=== PATIENT | female | born 1970 | race Two or more races ===

== ENCOUNTER → 2016-08-19 | Outpatient (CLI) | payer OTHER | LOC: OD 11:26 | PROVIDERS: ATTEND Internal Medicine Cardiovascular Disease | DX: N91.2 Amenorrhea, unspecified (principal) | CPT/HCPCS: 81025 ==

== ENCOUNTER 2016-12-31 13:20 | Emergency (ER) | payer OTHER ==
--- NOTE | 2016-12-31 14:27 | ER Document Report ---
ED Medical Screen (RME) - General Chief Complaint: Abdominal Pain Stated Complaint: ABDOMINAL PAIN Time Seen by Provider: 12/31/16 14:19 Notes: Says that she has been experiencing pain in her right lower quadrant since Wednesday evening. It has worsened and not better with Motrin. Has been nauseated but not vomiting. No change in bowels. Last bowel movement was yesterday. No fevers. Denies any UTI symptoms. Has never had any abdominal surgeries. History of IDDM. TRAVEL OUTSIDE OF THE [place] IN LAST 30 DAYS: No - Related Data Allergies/Adverse Reactions: morphine Adverse Reaction (Mild, Verified 12/31/16 13:28) Past Medical History - Past Medical History Cardiac Medical History: Denies: Hx Coronary Artery Disease, Hx Heart Attack, Hx Hypertension Pulmonary Medical History: Reports: Hx Asthma - MILD Denies: Hx Bronchitis, Hx COPD, Hx Pneumonia Neurological Medical History: Denies: Hx Cerebrovascular Accident, Hx Seizures Renal/ Medical History: Denies: Hx Peritoneal Dialysis Musculoskeltal Medical History: Denies Hx Arthritis Past Surgical History: Denies: Hx Hysterectomy - Immunizations Hx Diphtheria, Pertussis, Tetanus Vaccination: Yes Physical Exam - Vital signs Vitals: Temp Pulse Resp BP Pulse Ox 98.2 F 67 14 129/75 H 98 12/31/16 13:28 12/31/16 13:28 12/31/16 13:28 12/31/16 13:28 12/31/16 13:28 Course - Vital Signs Vital signs: Temp Pulse Resp BP Pulse Ox 98.2 F 67 14 129/75 H 98 12/31/16 13:28 12/31/16 13:28 12/31/16 13:28 12/31/16 13:28 12/31/16 13:28
[2016-12-31 14:56] LABS: ABSOLUTE BASOPHILS # (AUTO) 0.1 10^3/uL (0.0-0.2); ABSOLUTE EOSINOPHILS # (AUTO) 0.1 10^3/uL (0.0-0.6); ABSOLUTE LYMPHOCYTES (AUTO) 2.5 10^3/uL (0.5-4.7); ABSOLUTE MONOCYTES (AUTO) 0.7 10^3/uL (0.1-1.4); ABSOLUTE NEUT (AUTO) 3.1 10^3/uL (1.7-8.2); EOSINOPHILS % (AUTO) 1.6 % (0-6); HEMATOCRIT 39.1 % (36.0-47.0); HEMOGLOBIN 12.8 g/dL (12.0-15.5); HGB HCT DIFFERENCE -0.7; LYMPHOCYTES % (AUTO) 38.3 % (13-45); MEAN CORPUSCULAR HEMOGLOBIN 28.4 pg (27.0-33.4); MEAN CORPUSCULAR HGB CONC 32.6 g/dL (32.0-36.0); MEAN CORPUSCULAR VOLUME 87 fl (80-97); MONOCYTES % (AUTO) 10.8 % (3-13); RED BLOOD COUNT 4.49 10^6/uL (3.72-5.28); RED CELL DISTRIBUTION WIDTH 17.8 % (11.5-14.0); SEGMENTED NEUTROPHILS % (AUTO) 48.3 % (42-78); WHITE BLOOD COUNT 6.5 10^3/uL (4.0-10.5)
[2016-12-31 15:01] LABS: APPEARANCE,URINE CLEAR; BILIRUBIN,URINE NEGATIVE (NEGATIVE); GLUCOSE, URINE NEGATIVE (NEGATIVE); KETONES,URINE NEGATIVE (NEGATIVE); LEUKOCYTE ESTERASE,URINE NEGATIVE (NEGATIVE); NITRITE,URINE NEGATIVE (NEGATIVE); PROTEIN,URINE NEGATIVE (NEGATIVE); UROBILINOGEN,URINE NEGATIVE mg/dL (<2.0)
[2016-12-31 15:07] LABS: URINE SPECIFIC GRAVITY 1.006
[2016-12-31 15:09] LABS: ALANINE AMINOTRANSFERASE 45 U/L (9-52); ALBUMIN 4.6 g/dL (3.5-5.0); ALKALINE PHOSPHATASE 76 U/L (38-126); ANION GAP 13 (5-19); ASPARTATE AMINO TRANSFERASE 33 U/L (14-36); BILIRUBIN,DIRECT 0.3 mg/dL (0.0-0.4); BILIRUBIN,TOTAL 0.4 mg/dL (0.2-1.3); BLOOD UREA NITROGEN 14 mg/dL (7-20); CALCIUM 9.8 mg/dL (8.4-10.2); CARBON DIOXIDE 27 mmol/L (22-30); CHLORIDE 99 mmol/L (98-107); CREATININE RESULT 0.72 mg/dL (0.52-1.25); GLUCOSE 134 mg/dL (75-110); LIPASE 48.9 U/L (23-300); POTASSIUM 4.1 mmol/L (3.6-5.0); SODIUM 139.2 mmol/L (137-145)
--- NOTE | 2016-12-31 16:23 | ER Document Report ---
ED GI/ - General Mode of Arrival: Ambulatory Information source: Patient TRAVEL OUTSIDE OF THE [place] IN LAST 30 DAYS: No - HPI Patient complains to provider of: Abdominal pain Associated symptoms: Other - See above <ZACHARY GARCIA - Last Filed: 12/31/16 16:18> <JENIFER CASTRO - Last Filed: 12/31/16 19:57> - General Chief Complaint: Abdominal Pain Stated Complaint: ABDOMINAL PAIN Time Seen by Provider: 12/31/16 14:19 Notes: Patient is a 46 year old female, with a past medical history including diabetes and fibroids, who presents to the emergency department complaining of abdominal pain onset 4 days ago. Patient reports that the pain is located in her right lower abdomen and has been worsening. Patient states that she took GasX yesterday with no relief and a Motrin this morning with some relief. Patient went to urgent care and was told she did not have a UTI and if she wanted more tests to come to the ED. Patient also complains of some nausea. Patient denies fever, vomiting, and diarrhea. Patient states she had a shot of Lupron Depot in July and again on December 02, patient states that she had no period in October and only some spotting in November. Patient was also supposed to have her fibroids removed a couple of weeks ago but did not go. (ZACHARY GARCIA) - Related Data Allergies/Adverse Reactions: morphine Adverse Reaction (Mild, Verified 12/31/16 13:28) Past Medical History - General Information source: Patient - Social History Smoking Status: Never Smoker Chew tobacco use (# tins/day): No Frequency of alcohol use: None Drug Abuse: None Family History: Reviewed & Not Pertinent Patient has suicidal ideation: No Patient has homicidal ideation: No Pulmonary Medical History: Reports: Hx Asthma - MILD Endocrine Medical History: Reports: Hx Diabetes Mellitus Type 2 - Immunizations Hx Diphtheria, Pertussis, Tetanus Vaccination: Yes <ZACHARY GARCIA - Last Filed: 12/31/16 16:18> Review of Systems - Review of Systems Constitutional: denies: Fever EENT: No symptoms reported Cardiovascular: No symptoms reported Respiratory: No symptoms reported Gastrointestinal: See HPI, Abdominal pain, Nausea. denies: Diarrhea, Vomiting Genitourinary: No symptoms reported Female Genitourinary: No symptoms reported Musculoskeletal: No symptoms reported Skin: No symptoms reported Hematologic/Lymphatic: No symptoms reported Neurological/Psychological: No symptoms reported -: Yes All other systems reviewed and negative <GARCIAZACHARY - Last Filed: 12/31/16 16:18> Physical Exam <GARCIAZACHARY - Last Filed: 12/31/16 16:18> <JENIFER CASTRO - Last Filed: 12/31/16 19:57> - Vital signs Vitals: Temp Pulse Resp BP Pulse Ox 98.2 F 67 14 129/75 H 98 12/31/16 13:28 12/31/16 13:28 12/31/16 13:28 12/31/16 13:28 12/31/16 13:28 - Notes Notes: GENERAL: Alert, interacts well. No acute distress. HEAD: Normocephalic, atraumatic. EYES: Pupils equal, round, and reactive to light. Extraocular movements intact. ENT: Oral mucosa moist, tongue midline. NECK: Full range of motion. Supple. Trachea midline. LUNGS: Clear to auscultation bilaterally, no wheezes, rales, or rhonchi. No respiratory distress. HEART: Regular rate and rhythm. No murmurs, gallops, or rubs. ABDOMEN: Suprapubic and right lower quadrant tener to palpation. Abdomen soft and slightly large. Bowel sounds present in all 4 quadrants. EXTREMITIES: Moves all 4 extremities spontaneously. No edema. No cyanosis. NEUROLOGICAL: Alert and oriented x3. Normal speech. PSYCH: Normal affect, normal mood. SKIN: Warm, dry, normal turgor. No rashes or lesions noted. (RADHAZACHARY) Course - Laboratory Result Diagrams: 12/31/16 14:40 12/31/16 14:40 <ZACHARY GARCIA - Last Filed: 12/31/16 16:18> - Laboratory Result Diagrams: 12/31/16 14:40 12/31/16 14:40 <JENIFER CASTRO - Last Filed: 12/31/16 19:57> - Re-evaluation Re-evalutation: 12/31/16 18:44 CBC unremarkable, CMP shows hyperglycemia with glucose 134, LFTs normal, hCG negative, lipase normal, urinalysis negative, CT scan of the abdomen and pelvis shows known uterine fibroids which are worsened compared to prior, appendix is normal, there is moderate fecal retention noted. Specific explanation for the patient's pain is found at this time, some of the fecal retention may be contributing to it. Patient will be trialed on a dose of magnesium citrate at home and discharged to home. She will return for fevers or new or concerning symptoms. She will follow-up as an outpatient with [facility] TECH[facility]IC[facility] to reschedule her surgery for her fibroids. (JENIFER CASTRO) - Vital Signs Vital signs: Temp Pulse Resp BP Pulse Ox 97.8 F 76 16 120/74 100 12/31/16 19:05 12/31/16 19:05 12/31/16 19:05 12/31/16 19:05 12/31/16 19:05 - Laboratory Laboratory results interpreted by me: 12/31/16 12/31/16 14:40 14:40 RDW 17.8 H Glucose 134 H Discharge <ZACHARY GARCIA - Last Filed: 12/31/16 16:18> <JENIFER CASTRO - Last Filed: 12/31/16 19:57> - Discharge Clinical Impression: Right lower quadrant abdominal pain of unknown etiology Fecal retention Qualifiers: Constipation type: unspecified constipation type Qualified Code(s): K59.00 - Constipation, unspecified Fibroid uterus Qualifiers: Uterine leiomyoma location: intramural, submucous, and subserous Qualified Code (s): D25.1 - Intramural leiomyoma of uterus Condition: Stable Disposition: HOME, SELF-CARE Additional Instructions: We do not know exactly what is causing your abdominal pain, some of it is likely coming from the retained stool. Please drink a bottle of magnesium citrate to help clean out your intestines. Return for fevers, vomiting, worsening pain. Please follow-up with your [facility] TECHNIC[facility] as an outpatient to continue to address her uterine fibroids. Prescriptions: Magnesium Citrate 295 ml PO NOW #1 solution Referrals: LEAH ESCUDERO DO [Primary Care Provider] - Follow up in 3-5 days Scribe Attestation: 12/31/16 19:56 I personally performed the services described in the documentation, reviewed and edited the documentation which was dictated to the scribe in my presence, and it accurately records my words and actions. (JENIFER CASTRO) Scribe Documentation - Scribe Written by Renetta:: renetta Pate, 12/31/16, 1627 acting as scribe for :: Olman <ZACHARY GARCIA - Last Filed: 12/31/16 16:18>
--- NOTE | 2016-12-31 17:54 | RADIOLOGY REPORT (SQ) ---
EXAM DESCRIPTION: CT ABD/PELVIS WITH IV ORAL COMPLETED DATE/TIME: 12/31/2016 5:37 pm REASON FOR STUDY: RLQ pain 5 days COMPARISON: Correlation made to pelvic ultrasound from 07/13/2011. TECHNIQUE: CT scan of the abdomen and pelvis performed with intravenous and oral contrast using brando vic scanning technique with dynamic intravenous contrast injection. Images reviewed with lung, soft t issue, and bone windows. Reconstructed coronal and sagittal MPR images reviewed. Delayed images for e valuation of the urinary system also acquired. All images stored on PACS. All CT scanners at this facility use dose modulation, iterative reconstruction, and/or weight based d osing when appropriate to reduce radiation dose to as low as reasonably achievable (ALARA). [facility]: Dose Right [facility]: CareDose [facility]: Dose Right [facility]: Teradose 4D [facility]: [place] CONTRAST TYPE AND DOSE: contrast/concentration: Isovue 370.00 mg/ml; Total Contrast Delivered: 95.0 ml; Total Saline Delivered: 50.0 ml RENAL FUNCTION: GFR > 60. RADIATION DOSE: Up-to-date CT equipment and radiation dose reduction techniques were employed. CTDIv ol: 10.6 - 13.9 mGy. DLP: 2054 mGy-cm. . LIMITATIONS: None. FINDINGS: LOWER CHEST: No significant findings. No nodules or infiltrates. LIVER: Normal size. No masses. No dilated ducts. SPLEEN: Normal size. No focal lesions. PANCREAS: No masses. No significant calcifications. No adjacent inflammation or peripancreatic fluid collections. Pancreatic duct not dilated. GALLBLADDER: No identified stones by CT criteria. No inflammatory changes to suggest cholecystitis. ADRENAL GLANDS: No significant masses or asymmetry. RIGHT KIDNEY AND URETER: No solid masses. No significant calcifications. No hydronephrosis or hyd roureter. LEFT KIDNEY AND URETER: No solid masses. No significant calcifications. No hydronephrosis or hydr oureter. AORTA AND VESSELS: No aneurysm. No dissection. Renal arteries, SMA, celiac without stenosis. RETROPERITONEUM: No retroperitoneal adenopathy, hemorrhage or masses. BOWEL AND PERITONEAL CAVITY: Moderate fecal retention. No obstruction. No visualized masses. No free fluid. No inflammatory changes or thickening of bowel wall. APPENDIX: Normal. PELVIS: Again noted is fibroid uterus which has progressed compared to prior ultrasound with innumera ble fibroids some of which are calcified. The uterus measures approximately 16.8 x 13.8 x 10.9 cm. Ovaries are grossly normal by CT imaging. No additional significant masses. Normal bladder. No free fluid. ABDOMINAL WALL: No masses. No hernias. BONES: Degenerative disc disease L5-S1. No fracture or suspicious osseous lesion. OTHER: No other significant finding. IMPRESSION: NO ACUTE INFLAMMATORY CHANGES SEEN WITHIN THE ABDOMEN OR PELVIS. APPENDIX IS NORMAL. MODERATE FECAL RETENTION. FIBROID UTERUS ABOVE. TECHNICAL DOCUMENTATION: JOB ID: [id number] Quality ID # [id number]: Final reports with documentation of one or more dose reduction techniques (e.g., Au tomated exposure control, adjustment of the mA and/or kV according to patient size, use of iterative reconstruction technique) 2010 [employer]- All Rights Reserved
[2016-12-31 19:11] VITALS: BP 120/74
== END 2016-12-31 19:11 | disposition home or self-care (01) ==
LOC: ER 13:20
DX: R10.31 Right lower quadrant pain (principal); K59.00 Constipation, unspecified; D25.1 Intramural leiomyoma of uterus; E11.9 Type 2 diabetes mellitus without complications; R11.0 Nausea
CPT/HCPCS: 36415; 74177; 80053; 81001; 83690; 84703; 85025; 99284

== ENCOUNTER → 2017-05-06 | Outpatient (CLI) | payer OTHER ==
--- NOTE | 2017-05-06 10:57 | RADIOLOGY REPORT (SQ) ---
EXAM DESCRIPTION: C SP 4 OR 5 VIEWS COMPLETED DATE/TIME: 05/06/2017 10:48 am REASON FOR STUDY: CERVICALGIA M54.2 CERVICALGIA COMPARISON: None. NUMBER OF VIEWS: Five views. TECHNIQUE: AP, lateral, obliques and odontoid radiographic images acquired of the cervical spine. LIMITATIONS: None. FINDINGS: MINERALIZATION: Normal. ALIGNMENT: Anatomic. VERTEBRAE: Vertebral bodies of normal height. DISCS: No significant osteophytes or sclerosis. Disc height maintained. FORAMINA: No osteophytes or foraminal narrowing. LATERAL AND POSTERIOR ELEMENTS: Facets, lateral masses and spinous processes without significant find ings. HARDWARE: None in the spine. SOFT TISSUES: No masses or calcifications. Lung apices clear. OTHER: No other significant finding. IMPRESSION: NO SIGNIFICANT RADIOGRAPHIC FINDING IN THE CERVICAL SPINE. TECHNICAL DOCUMENTATION: JOB ID: [id number] [employer]- All Rights Reserved
== END ==
LOC: OD 10:08
PROVIDERS: ATTEND Family Medicine
DX: M54.2 Cervicalgia (principal)
CPT/HCPCS: 72050

== ENCOUNTER → 2017-05-25 | Outpatient (CLI) | payer OTHER ==
--- NOTE | 2017-05-25 08:38 | WOMENS IMAGING REPORT ---
EXAM DESCRIPTION: BILAT SCREENING MAMMO W/CAD COMPLETED DATE/TIME: 05/25/2017 7:59 am REASON FOR STUDY: SCREENING MAMMO Z12.31 ENCNTR SCREEN MAMMOGRAM FOR MALIGNANT NEOPLASM OF WILLIAM COMPARISON: 2008 TECHNIQUE: Standard craniocaudal and mediolateral oblique views of each breast recorded using digita l acquisition. LIMITATIONS: None. FINDINGS: RIGHT BREAST MASSES: No suspicious masses. CALCIFICATIONS: No new or suspicious calcifications. ARCHITECTURAL DISTORTION: None. DEVELOPING DENSITY: None. ASYMMETRY: None noted. OTHER: No other significant findings. LEFT BREAST MASSES: Subcentimeter nodule versus superimposed shadows far left breast upper outer quadrant. This requires further evaluation with left breast 90 mediolateral view/tomosynthesis, exaggerated cranioc audad view/tomosynthesis, and cone compression in the CC and MLO orientations. If this finding persi sts, then ultrasound would be required for followup CALCIFICATIONS: No new or suspicious calcifications. ARCHITECTURAL DISTORTION: None. DEVELOPING DENSITY: None. ASYMMETRY: None noted. OTHER: No other significant findings. Read with the assistance of CAD. .[facility] [place] - R2 C[employer]ova Version 1.3 .[facility] - R2 Cenova Version 1.3 .[facility] - R2 Cenova Version 2.4 .[facility] - R2 Cenova Version 2.4 .[facility] - R2 [employer] Version 9.2 IMPRESSION: Subcentimeter nodule versus superimposed shadows far left upper outer quadrant for which additional mammograms and ultrasound are recommended. No mammographic evidence for malignancy right breast. BREAST DENSITY: b. There are scattered areas of fibroglandular density. BIRAD: 0 Incomplete: Needs Additional Imaging Evaluation and/or prior Mammograms for Comparison. RECOMMENDATION: RECOMMENDED FOLLOW-UP: Additional left breast mammograms and ultrasound The patient will be contacted for additional imaging. COMMENT: The patient has been notified of the results by letter per SA requirements. Additional no tification policies are in place for contacting patient with suspicious or incomplete findings. Quality ID #225: The [employer] recommends an annual screening mammogram for women aged 40 years or over. This facility utilizes a reminder system to ensure that all patients receive reminder letters, and/or direct phone calls for appointments. This includes reminders for routine scr eening mammograms, diagnostic mammograms, or other Breast Imaging Interventions when appropriate. Th is patient will be placed in the appropriate reminder system. The [employer] (ACR) has developed recommendations for screening MRI of the breast s in certain patient populations, to be used in conjunction with mammography. Breast MRI surveillanc e may be appropriate for women with more than 20% lifetime risk of developing breast cancer as deter mined by genetic testing, significant family history of the disease, or history of mantle radiation f or Hodgkins Disease. ACR Practice Guidelines 2008. TECHNICAL DOCUMENTATION: FINDING NUMBER: (1) ASSESSMENT: (1) JOB ID: [id number] [employer]- All Rights Reserved
== END ==
LOC: WI 07:14
PROVIDERS: ATTEND Family Medicine
DX: Z12.31 Encounter for screening mammogram for malignant neoplasm of breast (principal)
CPT/HCPCS: 77067; G0202

== ENCOUNTER → 2017-06-22 | Outpatient (CLI) | payer OTHER ==
--- NOTE | 2017-06-22 11:51 | WOMENS IMAGING REPORT ---
EXAM DESCRIPTION: LEFT DIAGNOSTIC MAMMO W/CAD; U/S BREAST UNILAT LIMITED COMPLETED DATE/TIME: 06/22/2017 10:26 am; 06/22/2017 11:27 am REASON FOR STUDY: UNSPECIFIED LUMP;N63.21; LEFT BREAST; N63.21 N63.21 UNSPECIFIED LUMP IN THE LEFT BREAST, UPPER OUTER QUAD COMPARISON: 05/25/2017 and 07/22/2011. TECHNIQUE: Additional true lateral and compression MLO and CC images acquired. LIMITATIONS: None. FINDINGS: BREAST: left MASSES: Heterogenous parenchyma in the upper-outer breast with no discrete mass on additional images. CALCIFICATIONS: No new or suspicious calcifications. ARCHITECTURAL DISTORTION: None. DEVELOPING DENSITY: None. ASYMMETRY: None noted. OTHER: No other significant findings. BREAST ULTRASOUND: TECHNIQUE: Static and dynamic grayscale images acquired of the left breast in the specific areas of c linical/mammographic concern. Selected color Doppler images recorded. ELASTOGRAPHY PERFORMED: No. LIMITATIONS: None. FINDINGS: MASS: No mass identified. Normal glandular tissue. ELASTOGRAPHY CHARACTERISTICS: Not applicable. OTHER: No other significant finding. IMPRESSION: No abnormal mammographic or sonographic findings in the upper-outer breast. BREAST DENSITY: b. There are scattered areas of fibroglandular density. BIRAD: 2 Benign findings. RECOMMENDATION: RECOMMENDED FOLLOW UP: Birads 1 or 2: The patient should resume routine screening . SPECIFIC INTERVENTION/IMAGING/CONSULTATION RECOMMENDED:No additional intervention/ imaging/consultati on needed at this time. COMMUNICATION:The negative/benign results were communicated to the patient. COMMENT: The patient has been notified of the results by letter per SA requirements. Additional no tification policies are in place for contacting patient with suspicious or incomplete findings. Quality ID #225: The [employer] recommends an annual screening mammogram for women aged 40 years or over. This facility utilizes a reminder system to ensure that all patients receive reminder letters, and/or direct phone calls for appointments. This includes reminders for routine scr eening mammograms, diagnostic mammograms, or other Breast Imaging Interventions when appropriate. Th is patient will be placed in the appropriate reminder system. The [employer] (ACR) has developed recommendations for screening MRI of the breast s in certain patient populations, to be used in conjunction with mammography. Breast MRI surveillanc e may be appropriate for women with more than 20% lifetime risk of developing breast cancer as deter mined by genetic testing, significant family history of the disease, or history of mantle radiation f or Hodgkins Disease. ACR Practice Guidelines 2008. TECHNICAL DOCUMENTATION: FINDING NUMBER: (1) ASSESSMENT: (1) JOB ID: [id number] [employer]- All Rights Reserved
== END ==
LOC: WI 10:13
PROVIDERS: ATTEND Family Medicine
DX: N63.21 Unspecified lump in the left breast, upper outer quadrant (principal)
CPT/HCPCS: 76642; G0206

== ENCOUNTER → 2018-04-07 | Outpatient (CLI) | payer OTHER ==
[2018-04-07 13:38] LABS: HEMATOCRIT 35.6 % (36.0-47.0); MEAN CORPUSCULAR HEMOGLOBIN 29.9 pg (27.0-33.4); MEAN CORPUSCULAR HGB CONC 33.8 g/dL (32.0-36.0); MEAN CORPUSCULAR VOLUME 88 fl (80-97); PLATELET COUNT 419 10^3/uL (150-450); RED BLOOD COUNT 4.03 10^6/uL (3.72-5.28); RED CELL DISTRIBUTION WIDTH 13.6 % (11.5-14.0); WHITE BLOOD COUNT 4.2 10^3/uL (4.0-10.5)
[2018-04-07 13:55] LABS: ALANINE AMINOTRANSFERASE 20 U/L (9-52); ALBUMIN 4.5 g/dL (3.5-5.0); ALKALINE PHOSPHATASE 49 U/L (38-126); ANION GAP 11 (5-19); ASPARTATE AMINO TRANSFERASE 18 U/L (14-36); BILIRUBIN,DIRECT 0.2 mg/dL (0.0-0.4); BILIRUBIN,TOTAL 0.5 mg/dL (0.2-1.3); BLOOD UREA NITROGEN 12 mg/dL (7-20); CALCIUM 10.1 mg/dL (8.4-10.2); CARBON DIOXIDE 29 mmol/L (22-30); CHLORIDE 100 mmol/L (98-107); CHOLESTEROL 213.71 mg/dL (0-200); GLUCOSE 94 mg/dL (75-110); IRON(TIBC) 42.8 ug/dL (37-170); POTASSIUM 4.7 mmol/L (3.6-5.0); TOTAL PROTEIN 7.6 g/dL (6.3-8.2); TRIGLYCERIDES 64 mg/dL (<150)
[2018-04-07 14:06] LABS: DIRECT LDL 115 mg/dL (<100)
[2018-04-08 12:38] LABS: CREATININE URINE 75.4 mg/dL (Not Estab.); MICROALBUMIN URINE 27.2 ug/mL (Not Estab.)
== END ==
LOC: OD 12:19
PROVIDERS: ATTEND Family Medicine
DX: D50.0 Iron deficiency anemia secondary to blood loss (chronic) (principal); E11.9 Type 2 diabetes mellitus without complications
CPT/HCPCS: 36415; 80053; 80061; 82043; 82570; 82607; 82728; 83036; 83540; 83550; 85027

== ENCOUNTER → 2018-08-27 | Outpatient (CLI) | payer OTHER ==
[2018-08-27 10:52] LABS: HEMATOCRIT 38.3 % (36.0-47.0); MEAN CORPUSCULAR HEMOGLOBIN 30.8 pg (27.0-33.4); MEAN CORPUSCULAR VOLUME 91 fl (80-97); PLATELET COUNT 339 10^3/uL (150-450); RED BLOOD COUNT 4.22 10^6/uL (3.72-5.28); RED CELL DISTRIBUTION WIDTH 13.4 % (11.5-14.0)
[2018-08-27 11:11] LABS: ALANINE AMINOTRANSFERASE 23 U/L (9-52); ALBUMIN 4.5 g/dL (3.5-5.0); ALKALINE PHOSPHATASE 46 U/L (38-126); ANION GAP 6 (5-19); ASPARTATE AMINO TRANSFERASE 16 U/L (14-36); BILIRUBIN,DIRECT 0.1 mg/dL (0.0-0.4); BILIRUBIN,TOTAL 0.4 mg/dL (0.2-1.3); BLOOD UREA NITROGEN 14 mg/dL (7-20); CALCIUM 10.4 mg/dL (8.4-10.2); CARBON DIOXIDE 31 mmol/L (22-30); CHLORIDE 103 mmol/L (98-107); CHOLESTEROL 218.54 mg/dL (0-200); GLUCOSE 112 mg/dL (75-110); POTASSIUM 4.9 mmol/L (3.6-5.0); SODIUM 140.2 mmol/L (137-145); TOTAL PROTEIN 7.2 g/dL (6.3-8.2); TRIGLYCERIDES 80 mg/dL (<150)
[2018-08-27 11:22] LABS: DIRECT LDL 134 mg/dL (<100)
== END ==
LOC: LAB 10:21
PROVIDERS: ATTEND Internal Medicine Cardiovascular Disease
DX: R00.2 Palpitations (principal); R07.9 Chest pain, unspecified; E78.00 Pure hypercholesterolemia, unspecified; E11.9 Type 2 diabetes mellitus without complications
CPT/HCPCS: 36415; 80048; 80061; 80076; 83735; 84443; 85027

== ENCOUNTER → 2018-09-15 | Outpatient (CLI) | payer OTHER | LOC: LAB 10:48 | PROVIDERS: ATTEND Internal Medicine Cardiovascular Disease | DX: N91.2 Amenorrhea, unspecified (principal) | CPT/HCPCS: 36415; 84703 ==

== ENCOUNTER → 2019-06-07 | Outpatient (CLI) | payer OTHER ==
--- NOTE | 2019-06-07 13:24 | RADIOLOGY REPORT (SQ) ---
EXAM DESCRIPTION: LUMBAR SPINE COMPLETE COMPLETED DATE/TIME: 06/07/2019 12:07 pm REASON FOR STUDY: LOW BACK PAIN, UTERINE LEIOMYOMA D25.9 LEIOMYOMA OF UTERUS, UNSPECIFIED M54.5 LO W BACK PAIN COMPARISON: CT abdomen pelvis 12/31/2016 NUMBER OF VIEWS: Five views including obliques. TECHNIQUE: AP, lateral, oblique, and sacral radiographic images acquired of the lumbar spine. LIMITATIONS: None. FINDINGS: MINERALIZATION: Normal. SEGMENTATION: Normal. No transitional anatomy. ALIGNMENT: Normal. VERTEBRAE: Maintained height. No fracture or worrisome bone lesion. DISCS: Disc space loss of height at L4-5 and L5-S1 POSTERIOR ELEMENTS: Pedicles and facets are intact. No pars defect or posterior arch defects. Bulky facet arthropathy left greater than right at L3-4. Bulky bilateral facet arthropathy at L4-5 and L5 -S1. HARDWARE: None in the spine. PARASPINAL SOFT TISSUES: An enlarged fibroid uterus is present with a calcified 4 cm fibroid PELVIS: SI joints intact OTHER: No other significant finding. IMPRESSION: Lower lumbar facet arthropathy and disc space loss of height TECHNICAL DOCUMENTATION: JOB ID: [id number]- All Rights Reserved Reading location - IP/workstation name: [email or web address]
--- NOTE | 2019-06-07 13:25 | RADIOLOGY REPORT (SQ) ---
EXAM DESCRIPTION: PELVIS AP COMPLETED DATE/TIME: 06/07/2019 12:07 pm REASON FOR STUDY: LOW BACK PAIN, UTERINE LEIOMYOMA D25.9 LEIOMYOMA OF UTERUS, UNSPECIFIED M54.5 LO W BACK PAIN COMPARISON: CT abdomen pelvis 01/10/2017 NUMBER OF VIEWS: One view TECHNIQUE: AP Pelvis LIMITATIONS: None. FINDINGS: MINERALIZATION: Normal. HIPS: No acute fracture or dislocation. No worrisome bone lesions. PELVIS AND SACRUM: No acute fracture or dislocation. No worrisome bone lesions. PUBIS AND ISCHIUM: No acute fracture. LOWER LUMBAR SPINE: Lower lumbar facet arthropathy SOFT TISSUES: Enlarged fibroid uterus with 4 cm calcified fibroid in the left pelvis. OTHER: No other significant finding. IMPRESSION: Enlarged fibroid uterus with calcified uterine fibroid. COMMENT: Pelvic fractures are often occult on plain radiographs. If strong clinical suspicion for f racture, recommend CT or MR. TECHNICAL DOCUMENTATION: JOB ID: [id number] [employer]- All Rights Reserved Reading location - IP/workstation name: [email or web address]
== END ==
LOC: OD 11:50
PROVIDERS: ATTEND Family Medicine
DX: D25.9 Leiomyoma of uterus, unspecified (principal); M54.5 Low back pain
CPT/HCPCS: 72110; 72170